=== PATIENT | female | born 1990 | race Two or more races ===

== ENCOUNTER → 2024-03-08 14:06 | Outpatient (CLI) | payer OTHER | END | disposition home or self-care (01) | LOC: PRENATAL 14:06 | PROVIDERS: ATTEND Obstetrics & Gynecology Maternal & Fetal Medicine | DX: O36.80X0 Pregnancy with inconclusive fetal viability, not applicable or unspecified (principal); Z36.82 Encounter for antenatal screening for nuchal translucency; Z14.8 Genetic carrier of other disease; O09.519 Supervision of elderly primigravida, unspecified trimester; O10.019 Pre-existing essential hypertension complicating pregnancy, unspecified trimester; O34.40 Maternal care for other abnormalities of cervix, unspecified trimester; Z3A.13 13 weeks gestation of pregnancy ==

== ENCOUNTER 2024-05-03 13:21 | Outpatient (CLI) | payer OTHER | END 2024-05-03 13:22 | disposition home or self-care (01) | LOC: PRENATAL 13:21 | PROVIDERS: ATTEND Obstetrics & Gynecology Maternal & Fetal Medicine | DX: O44.00 Complete placenta previa NOS or without hemorrhage, unspecified trimester (principal); O09.519 Supervision of elderly primigravida, unspecified trimester; O10.019 Pre-existing essential hypertension complicating pregnancy, unspecified trimester; O34.40 Maternal care for other abnormalities of cervix, unspecified trimester; O34.00 Maternal care for unspecified congenital malformation of uterus, unspecified trimester; Z3A.22 22 weeks gestation of pregnancy ==

== ENCOUNTER 2024-05-19 07:32 | Outpatient (CLI) | payer OTHER ==
[2024-05-19 08:02] VITALS: BP 102/65; BP 112/65
[2024-05-19] MEDS ORDERED: CHILDREN'S ASPI81 MG PO (08:18)
[2024-05-19] MEDS ORDERED: PROGESTERONE100 M1 PO (08:18)
[2024-05-19] MEDS ORDERED: PRENATAL CAPLE1 EAC1 PO (08:19)
[2024-05-19] MEDS ORDERED: PROZAC10 MG PO (08:19)
[2024-05-19 11:30] VITALS: BP 111/73
[2024-05-19 13:47] VITALS: BP 111/73
== END 2024-05-19 13:47 | disposition left against medical advice (07) ==
LOC: OBS/DEL 07:32
PROVIDERS: ATTEND Obstetrics & Gynecology
DX: O26.842 Uterine size-date discrepancy, second trimester (principal); O10.012 Pre-existing essential hypertension complicating pregnancy, second trimester; Z14.8 Genetic carrier of other disease; O99.340 Other mental disorders complicating pregnancy, unspecified trimester; O26.879 Cervical shortening, unspecified trimester; Z3A.24 24 weeks gestation of pregnancy

== ENCOUNTER → 2024-06-23 11:11 | Outpatient (CLI) | payer OTHER ==
[~2024-06-23 11:11] MED LIST: CHILDREN'S ASPI81 MG PO; PRENATAL CAPLE1 EAC1 PO; PROGESTERONE100 M1 PO; PROZAC10 MG PO
== END | disposition home or self-care (01) ==
LOC: PRENATAL 11:11
PROVIDERS: ATTEND Obstetrics & Gynecology Maternal & Fetal Medicine
DX: O26.849 Uterine size-date discrepancy, unspecified trimester (principal); O09.519 Supervision of elderly primigravida, unspecified trimester; O10.019 Pre-existing essential hypertension complicating pregnancy, unspecified trimester; O34.40 Maternal care for other abnormalities of cervix, unspecified trimester; O26.879 Cervical shortening, unspecified trimester; O24.419 Gestational diabetes mellitus in pregnancy, unspecified control; Z3A.30 30 weeks gestation of pregnancy

== ENCOUNTER → 2024-07-21 10:16 | Outpatient (CLI) | payer OTHER | END | disposition home or self-care (01) | LOC: PRENATAL 10:16 | PROVIDERS: ATTEND Obstetrics & Gynecology Maternal & Fetal Medicine | DX: O26.849 Uterine size-date discrepancy, unspecified trimester (principal); O09.519 Supervision of elderly primigravida, unspecified trimester; O10.019 Pre-existing essential hypertension complicating pregnancy, unspecified trimester; O34.40 Maternal care for other abnormalities of cervix, unspecified trimester; O26.879 Cervical shortening, unspecified trimester; O24.419 Gestational diabetes mellitus in pregnancy, unspecified control; Z3A.35 35 weeks gestation of pregnancy ==

== ENCOUNTER 2024-08-15 11:26 | Outpatient (CLI) | payer OTHER ==
[2024-08-15 12:01] VITALS: BP 95/61
[2024-08-15 13:09] LABS: URINE APPEARANCE Cloudy; URINE BILIRRUBIN Negative (NEGATIVE); URINE BLOOD Large; URINE COLOR Yellow; URINE GLUCOSE Negative (NEGATIVE); URINE KETONE Negative (NEGATIVE); URINE LEUKOCYTE Small; URINE NITRATE Negative; URINE PROTEIN Trace (NEGATIVE); URINE UROBILINOGEN 0.2 E.U./dl
[2024-08-15 13:10] LABS: URINE EPITHELIAL CELLS 104.1 uL (0.0-38.8); URINE RBC 681.8 uL (0.0-20.8); URINE WBC 138.3 uL (0.0-23.2)
[2024-08-15 13:11] LABS: HEMATOCRIT 33.4 % (36.0-45.00); HEMOGLOBIN 11.3 g/dL (12.0-15.00); MEAN CELL VOLUME 78.2 fL (80.00-100.00); MEAN CORPUSCULAR HEMOGLOBIN 26.5 pg (27.00-32.0); MEAN CORPUSCULAR HGB CONC 33.9 g/dl (32.0-36.0); PLATELET COUNT 204 K/uL (150-450); RED BLOOD COUNT 4.27 M/uL (4.00-6.00); RED CELL DISTRIBUTION WIDTH 14.4 % (11.5-14.5)
[2024-08-15 13:30] LABS: URINE EPITHELIAL CELLS LOADED /HPF
[2024-08-15 13:54] LABS: ALBUMIN 2.5 gm/dL (3.4-5.0); BILIRUBIN TOTAL 0.2 mg/dL (0.3-1.2); CALCIUM 9.6 mg/dL (8.5-10.1); CREATININE SERUM 0.56 mg/dL (0.55-1.02); GFR 123.19; GLOBULINA 3.5 G/DL (2.4-3.5); POTASSIUM 3.77 mEq/L (3.5-5.1)
[2024-08-15 15:27] VITALS: BP 109/71
[2024-08-15 16:00] VITALS: BP 109/71
== END 2024-08-15 16:23 | disposition home or self-care (01) ==
LOC: OBS/DEL 11:26
PROVIDERS: ATTEND Obstetrics & Gynecology
DX: O26.893 Other specified pregnancy related conditions, third trimester (principal); Z3A.35 35 weeks gestation of pregnancy

== ENCOUNTER 2024-08-18 13:29 | Outpatient (CLI) | payer OTHER | END 2024-08-18 13:30 | disposition home or self-care (01) | LOC: PRENATAL 13:29 | PROVIDERS: ATTEND Obstetrics & Gynecology Maternal & Fetal Medicine | DX: O26.849 Uterine size-date discrepancy, unspecified trimester (principal); O09.519 Supervision of elderly primigravida, unspecified trimester; O10.019 Pre-existing essential hypertension complicating pregnancy, unspecified trimester; O34.40 Maternal care for other abnormalities of cervix, unspecified trimester; O24.419 Gestational diabetes mellitus in pregnancy, unspecified control; Z3A.38 38 weeks gestation of pregnancy ==

== ENCOUNTER 2024-08-29 15:30 | Inpatient (IN) | payer OTHER ==
[~2024-08-29] VITALS: Ht 162.6 cm; Wt 100.2 kg
[2024-08-29 16:15] LABS: HEMATOCRIT 35.4 % (36.0-45.00); HEMOGLOBIN 12.1 g/dL (12.0-15.00); MEAN CELL VOLUME 76.8 fL (80.00-100.00); MEAN CORPUSCULAR HEMOGLOBIN 26.2 pg (27.00-32.0); MEAN CORPUSCULAR HGB CONC 34.1 g/dl (32.0-36.0); PLATELET COUNT 220 K/uL (150-450)
[2024-08-29 16:16] LABS: URINE APPEARANCE Cloudy; URINE BILIRRUBIN Negative (NEGATIVE); URINE BLOOD Moderate; URINE COLOR Yellow; URINE GLUCOSE Negative (NEGATIVE); URINE KETONE Trace (NEGATIVE); URINE LEUKOCYTE Moderate; URINE NITRATE Negative; URINE PROTEIN Trace (NEGATIVE)
[2024-08-29 16:17] LABS: URINE BACTERIA 4286.4 uL (0.0-1933); URINE RBC 255.1 uL (0.0-20.8); URINE WBC 238.8 uL (0.0-23.2)
[2024-08-29 16:49] LABS: INR 0.96; PARTIAL THROMBOPLASTIN TIME 32.6 SECONDS (22.0-34.0); PROTHROMBIN TIME 10.5 SECONDS (9.0-11.5)
[2024-08-29 16:54] LABS: ALBUMIN 2.8 gm/dL (3.4-5.0); BILIRUBIN TOTAL 0.22 mg/dL (0.3-1.2); CALCIUM 9.6 mg/dL (8.5-10.1); CREATININE SERUM 0.69 mg/dL (0.55-1.02); GFR 96.82; GLOBULINA 3.7 G/DL (2.4-3.5); POTASSIUM 3.93 mEq/L (3.5-5.1); TOTAL PROTEIN 6.5 gm/dL (6.4-8.2)
[2024-08-29 17:56] LABS: URINE CAST 0.88 uL (0.0-1.40)
[2024-09-03] VITALS (10 sets, daily range): BP systolic 114–134; BP diastolic 69–79
[2024-09-03] MEDS ORDERED: MORPHINE SULFATE 4 MG/ML CARTRIDGE IV ONE (01:00)
[2024-09-03] MEDS ORDERED: RINGERS SOLUTION,LACTATED 1,000 ML IV SCH (01:00)
[2024-09-03 01:34] LABS: PH,URINE 5.5 (5.0-8.0); URINE APPEARANCE Clear; URINE BILIRRUBIN Negative (NEGATIVE); URINE BLOOD Large; URINE COLOR Yellow; URINE GLUCOSE Negative (NEGATIVE); URINE KETONE Trace (NEGATIVE); URINE LEUKOCYTE Moderate; URINE NITRATE Negative; URINE PROTEIN Trace (NEGATIVE)
[2024-09-03 01:38] LABS: URINE BACTERIA 491.9 uL (0.0-1933); URINE EPITHELIAL CELLS 47.6 uL (0.0-38.8); URINE RBC 268.5 uL (0.0-20.8); URINE WBC 155.7 uL (0.0-23.2)
[2024-09-03 01:56] LABS: URINE CAST 0.29 uL (0.0-1.40)
[2024-09-03] MEDS ORDERED: PROMETHAZINE HCL 25 MG/ML AMPUL IV ONE (04:30)
[2024-09-03] MEDS ORDERED: OXYTOCIN 20 UNITS/500ML RL PIGGYBAG IV ONE (06:16)
[2024-09-03] MEDS ORDERED: MORPHINE SULFATE 4 MG/ML VIAL IV PRN (06:30)
[2024-09-03] MEDS ORDERED: OXYTOCIN 500 ML IV SCH (06:30)
[2024-09-03] MEDS ORDERED: CHLORHEXIDINE GLUCONATE 120 ML BOTTLE TOP ONE (07:07)
[2024-09-03] MEDS ORDERED: OXYTOCIN 20 UNITS/1000ML RL PIGGYBAG IV ONE (07:07)
[2024-09-03] MEDS ORDERED: ERYTHROMYCIN BASE OPHT 1GM EACH TUBE OP ONE ×2 (07:07→11:00)
[2024-09-03] MEDS ORDERED: LIDOCAINE HCL 1% 10ML VIAL ONE (07:08)
[2024-09-03] MEDS ORDERED: ACETAMINOPHEN 500 MG GEL..CAP PO PRN (11:00)
[2024-09-03] MEDS ORDERED: LIDOCAINE HCL 1% 10ML VIAL IJ ONE (11:00)
[2024-09-03] MEDS ORDERED: CHLORHEXIDINE GLUCONATE 120 ML BOTTLE TOP SCH (11:00)
[2024-09-03] MEDS ORDERED: OXYTOCIN 1,000 ML IV SCH (11:00)
[2024-09-04 00:30] VITALS: BP 103/69
[2024-09-04 07:30] LABS: HEMATOCRIT 29.3 % (36.0-45.00); MEAN CELL VOLUME 76.8 fL (80.00-100.00); MEAN CORPUSCULAR HEMOGLOBIN 26.3 pg (27.00-32.0); MEAN CORPUSCULAR HGB CONC 34.2 g/dl (32.0-36.0); PLATELET COUNT 210 K/uL (150-450); RED BLOOD COUNT 3.82 M/uL (4.00-6.00); RED CELL DISTRIBUTION WIDTH 14.7 % (11.5-14.5)
[2024-09-04 08:00] VITALS: BP 101/70
[2024-09-04] MEDS ORDERED: PNV,CALCIUM 72/IRON/FOLIC ACID 1 TAB TABLET PO SCH (09:00)
[2024-09-04 18:25] VITALS: BP 101/68
[2024-09-05 01:05] VITALS: BP 106/67
[2024-09-05 08:15] VITALS: BP 113/70
== END 2024-09-05 12:27 | disposition home or self-care (01) | DRG 806 ==
LOC: LDR 09-03 00:51 → OB/GYN 09-03 00:51
PROVIDERS: Obstetrics & Gynecology; ADMIT Student in an Organized Health Care Education/Training Program; ATTEND Student in an Organized Health Care Education/Training Program
PROC: 10E0XZZ Delivery of Products of Conception, External Approach (ICD-10-PCS; principal; 2024-09-03)
PROC: 0HQ9XZZ Repair Perineum Skin, External Approach (ICD-10-PCS; 2024-09-03)
PROC: 4A1HXCZ Monitoring of Products of Conception, Cardiac Rate, External Approach (ICD-10-PCS; 2024-09-03)
DX: O70.0 First degree perineal laceration during delivery (principal); O10.02 Pre-existing essential hypertension complicating childbirth; Z37.0 Single live birth; O99.214 Obesity complicating childbirth; E66.9 Obesity, unspecified; O24.420 Gestational diabetes mellitus in childbirth, diet controlled; Z3A.38 38 weeks gestation of pregnancy